=== PATIENT | female | born 1955 | race Caucasian/White ===

== ENCOUNTER → 2023-07-06 13:31 | Outpatient (CLI) | payer MEDICARE, BC, SELFPAY | PROVIDERS: PCP Internal Medicine; Referring Provider Nurse Practitioner Family; Visit Provider Surgery | DX: L89.613 Pressure ulcer of right heel, stage 3 (principal); R60.0 Localized edema; G82.50 Quadriplegia, unspecified; E05.00 Thyrotoxicosis with diffuse goiter without thyrotoxic crisis or storm; R20.8 Other disturbances of skin sensation; Z99.3 Dependence on wheelchair | CPT/HCPCS: 11042; 99204; 99213 ==

== ENCOUNTER → 2023-07-06 15:19 | Outpatient (CLI) | payer MEDICARE, BC, SELFPAY ==
--- NOTE | 2023-07-06 15:22 | DI.RAD.S_ITS ---
PROCEDURE: XR FOOT RT MIN 3V INDICATIONS: Wound to right heel TECHNIQUE: 3 views of the foot were acquired. COMPARISON: None. FINDINGS: Bones: There are mild scattered degenerative changes. No displaced fracture or dislocation. Soft tissues: No suspicious calcifications. IMPRESSION: No acute radiographic abnormality. There is no obvious osseous erosion by radiography. If there is high concern for osteomyelitis, consider MRI evaluation. Dictated by: Chaim Kumar M.D. on 07/06/2023 at 16:48 Approved by: Chaim Kumar M.D. on 07/06/2023 at 16:49
== END ==
PROVIDERS: PCP Internal Medicine; Referring Provider Surgery; Visit Provider Surgery
DX: S91.301A Unspecified open wound, right foot, initial encounter (principal); L89.613 Pressure ulcer of right heel, stage 3; R60.0 Localized edema; G82.50 Quadriplegia, unspecified; E05.00 Thyrotoxicosis with diffuse goiter without thyrotoxic crisis or storm; R20.8 Other disturbances of skin sensation; Z99.3 Dependence on wheelchair; X58.XXXA Exposure to other specified factors, initial encounter
CPT/HCPCS: 11042; 73630; 99213

== ENCOUNTER → 2023-07-13 12:56 | Outpatient (CLI) | payer MEDICARE, BC, SELFPAY ==
--- NOTE | 2023-07-13 12:57 | DI.US.S_ITS ---
PROCEDURE: US ARTERIAL DUPLEX LE RT INDICATIONS: Wound to right heel TECHNIQUE: Color and pulse Doppler interrogation was performed of the right lower extremity arterial system, with image documentation. COMPARISON: None. FINDINGS: Common femoral artery: 116 cm/sec, with triphasic flow. Deep femoral artery: 78 cm/sec, with triphasic flow. Proximal superficial femoral artery: 64 cm/sec, with biphasic flow. Mid superficial femoral artery: 87 cm/sec, with biphasic flow. Distal superficial femoral artery: 71 cm/sec, with biphasic flow. Popliteal artery: 47 cm/sec, with biphasic flow. Posterior tibial artery: 52 cm/sec, with biphasic flow. Anterior tibial artery/dorsalis pedis: 43 cm/sec, with biphasic flow. Varela-scale imaging description: Patent vessels with normal waveforms. IMPRESSION: Unremarkable right lower extremity duplex arterial ultrasound. Dictated by: Asim Dsouza M.D. on 07/13/2023 at 17:27 Approved by: Asim Dsouza M.D. on 07/13/2023 at 17:28
== END ==
PROVIDERS: PCP Family Medicine; Referring Provider Surgery; Visit Provider Surgery
DX: S91.301A Unspecified open wound, right foot, initial encounter (principal)
CPT/HCPCS: 93926

== ENCOUNTER → 2023-07-13 14:32 | Outpatient (CLI) | payer MEDICARE, BC, SELFPAY | PROVIDERS: PCP Family Medicine; Referring Provider Nurse Practitioner Family; Visit Provider Surgery | DX: L89.613 Pressure ulcer of right heel, stage 3 (principal); G82.50 Quadriplegia, unspecified; E05.00 Thyrotoxicosis with diffuse goiter without thyrotoxic crisis or storm; I73.9 Peripheral vascular disease, unspecified; R60.0 Localized edema; S91.301A Unspecified open wound, right foot, initial encounter | CPT/HCPCS: 11042; 93926 ==

== ENCOUNTER → 2023-07-27 14:24 | Outpatient (CLI) | payer MEDICARE, BC, SELFPAY | PROVIDERS: PCP Family Medicine; Referring Provider Nurse Practitioner Family; Visit Provider Surgery | DX: L89.613 Pressure ulcer of right heel, stage 3 (principal); G82.50 Quadriplegia, unspecified; R60.0 Localized edema; E05.90 Thyrotoxicosis, unspecified without thyrotoxic crisis or storm | CPT/HCPCS: 11042 ==

== ENCOUNTER → 2023-08-10 15:03 | Outpatient (CLI) | payer MEDICARE, BC, SELFPAY | PROVIDERS: PCP Family Medicine; Referring Provider Nurse Practitioner Family; Visit Provider Surgery | DX: Z09 Encounter for follow-up examination after completed treatment for conditions other than malignant neoplasm (principal); Z87.2 Personal history of diseases of the skin and subcutaneous tissue; L89.613 Pressure ulcer of right heel, stage 3 | CPT/HCPCS: 99212; 99213 ==